=== PATIENT | female | born 1975 | race Caucasian/White ===

== ENCOUNTER 2020-11-28 17:34 | Observation (INO) | payer SELFPAY ==
[2020-11-28] MEDS ORDERED: Lorazepam 2 MG/ML VIAL ONE ×2 (19:29→23:35)
[2020-11-28 19:51] LABS: Acetaminophen Less than 6.0 mcg/mL (10.0-30.0); Alcohol 29 mg/dL (Less than 10); Salicylate Less than 8.0 mg/dL (15.0-30.0)
[2020-11-28 19:53] LABS: ALT (SGPT) 81 U/L (8-55); AST (SGOT) 305 U/L (5-34); Albumin 3.4 g/dL (3.5-5.0); Alkaline Phosphatase 135 U/L (40-110); Anion Gap 20 mmol/L (10-20); BUN (Urea Nitrogen) 7 mg/dL (7.0-18.7); Bilirubin, Total 2.9 mg/dL (0.2-1.2); Calc. Creatinine Clearance 0 mL/min (70-130); Calcium 9.1 mg/dL (7.8-10.44); Carbon Dioxide 18 mmol/L (22-29); Chloride 98 mmol/L (98-107); Globulin 5.9 g/dL (2.4-3.5); Glucose 124 mg/dL (70-105); Lipase 28 U/L (8-78); Potassium 3.2 mmol/L (3.5-5.1); Protein, Total 9.3 g/dL (6.0-8.3); Sodium 133 mmol/L (136-145)
[2020-11-28] MEDS ORDERED: Thiamine HCl 200 MG/2 ML VIAL SLOW IVP SCH (20:00)
[2020-11-28] MEDS ORDERED: Folic Acid 1 MG, Multivitamins, Adult 10 ML in Dextrose 5 %-0.45 % NaCl 1,000 ML IV SCH (20:00)
[2020-11-28 20:21] LABS: Hemoglobin 14.9 g/dL (12.0-15.5); Mean Corpuscular HGB CONC 35.6 g/dL (32.0-36.0); RBC Distribution Width 12.3 % (11.5-14.5); Red Blood Cell (RBC) Count 4.03 10x6/uL (3.90-5.03); White Blood Cell (WBC) Count 4.4 10x3/uL (3.5-10.5)
[2020-11-28] MEDS ORDERED: Multivitamins, Adult 10 ML, Thiamine HCl 100 MG, Folic Acid 1 MG in Dextrose 5 %-0.45 %... IV SCH (20:30)
[2020-11-28 21:03] LABS: Mean Platelet Volume 12.4 fl (7.4-10.4); Platelet Count 49 10x3/uL (150-450)
[2020-11-28 21:07] LABS: #Basophils 0.1 10x3/uL (0.0-0.2); #Monocytes 0.5 10x3/uL (0.0-1.1); #Neutrophils 3.2 10x3/uL (1.5-8.4); %Basophils 1.1 % (0.0-2.0); %Eosinophils 0.2 % (0.0-6.0); %Lymphocytes 13.1 % (18.0-47.0); %Neutrophils 74.4 % (40.0-75.0)
[2020-11-28 21:10] LABS: Macrocytosis SLIGHT = 6-15 cells (100X) (0-5/hpf); Platelet Morphology Comment Appears Decreased
[2020-11-28] MEDS ORDERED: Calcium Carbonate 500 MG ChewTAB PO PRN (22:09)
[2020-11-28] MEDS ORDERED: Acetaminophen 325 MG TAB PO PRN (22:09)
[2020-11-28] MEDS ORDERED: Famotidine/PF 20 mg/2ml Vial SLOW IVP SCH (22:15)
[2020-11-28] MEDS ORDERED: Magnesium Sulfate/D5W 1 GM/100 ML BAG IVPB SCH (22:15)
[2020-11-28] MEDS ORDERED: Promethazine HCl 12.5 MG in Sodium Chloride 0.9% 50 ML IVPB PRN (22:24)
[2020-11-28] MEDS ORDERED: Potassium Chloride 20 MEQ TAB PO SCH (22:30)
[2020-11-28 22:51] LABS: Lactic Acid 1.9 mmol/L (0.5-2.2)
[2020-11-28] MEDS ORDERED: Nicotine 21 MG PATCH TD SCH (23:00)
[2020-11-28] MEDS ORDERED: Potassium Chloride 20 MEQ TAB ONE (23:34)
[2020-11-28] MEDS ORDERED: KCL IV ONE (23:36)
[2020-11-28] MEDS ORDERED: NS IV ONE (23:36)
[2020-11-29] MEDS ORDERED: Lorazepam 2 MG/ML VIAL SLOW IVP SCH (01:00)
[2020-11-29] MEDS ORDERED: Potassium Chloride 20 MEQ TAB ONE (01:42)
[2020-11-29] MEDS ORDERED: Famotidine/PF 20 mg/2ml Vial ONE (01:43)
[2020-11-29] MEDS: NS 0.9% w/ 40 MEQ KCL 1,000 ML IV SCH ×2 (01:51→08:00)
[2020-11-29] MEDS ORDERED: Lorazepam 2 MG/ML VIAL ONE ×2 (03:06→12:55)
[2020-11-29] MEDS ORDERED: Promethazine HCl 25 MG/ML VIAL ONE (03:11)
[2020-11-29] MEDS: Lorazepam 2 MG/ML VIAL SLOW IVP PRN ×2 (03:26→12:58)
[2020-11-29 04:35] LABS: Lactic Acid 1.2 mmol/L (0.5-2.2)
[2020-11-29 04:41] LABS: ALT (SGPT) 69 U/L (8-55); AST (SGOT) 260 U/L (5-34); Alkaline Phosphatase 111 U/L (40-110); Anion Gap 15 mmol/L (10-20); BUN (Urea Nitrogen) 7 mg/dL (7.0-18.7); CK (CPK) 1784 U/L (29-168); Calc. Creatinine Clearance 0 mL/min (70-130); Calcium 8.4 mg/dL (7.8-10.44); Carbon Dioxide 21 mmol/L (22-29); Chloride 102 mmol/L (98-107); Glucose 101 mg/dL (70-105); Magnesium 1.8 mg/dL (1.6-2.6); Phosphorus 2.4 mg/dL (2.3-4.7); Potassium 3.5 mmol/L (3.5-5.1); Sodium 134 mmol/L (136-145)
[2020-11-29 04:49] LABS: #Monocytes 0.5 10x3/uL (0.0-1.1); #Neutrophils 2.7 10x3/uL (1.5-8.4); %Basophils 0.8 % (0.0-2.0); %Eosinophils 0.8 % (0.0-6.0); %Lymphocytes 17.3 % (18.0-47.0); %Neutrophils 67.8 % (40.0-75.0); Hemoglobin 12.2 g/dL (12.0-15.5); Mean Corpuscular HGB CONC 34.7 g/dL (32.0-36.0); Mean Corpuscular Hemoglobin 36.2 pg (27.0-33.0); Mean Corpuscular Volume 104.5 fl (81.6-98.3); Platelet Count 36 10x3/uL (150-450); RBC Distribution Width 12.4 % (11.5-14.5); Red Blood Cell (RBC) Count 3.37 10x6/uL (3.90-5.03)
[2020-11-29] MEDS ORDERED: Magnesium Sulfate/D5W 1 GM/100 ML BAG IVPB SCH (05:00)
[2020-11-29 05:04] LABS: Globulin 5.1 g/dL (2.4-3.5); Protein, Total 8.1 g/dL (6.0-8.3)
[2020-11-29 05:11] LABS: INR-International Normal Ratio 1.2; PTT 29.1 sec (22.0-33.0); Prothrombin Time 13.5 sec (9.5-12.1)
[2020-11-29] MEDS ORDERED: Metoprolol Tartrate 25 MG TAB PO SCH (09:00)
[2020-11-29] MEDS ORDERED: Pantoprazole 40 MG VIAL IVP SCH (09:00)
[2020-11-29] MEDS ORDERED: Multivitamins, Adult 10 ML, Thiamine HCl 100 MG, Folic Acid 1 MG in Dextrose 5 %-0.45 %... IV SCH (09:00)
[2020-11-29] MEDS ORDERED: Lorazepam 0.5 MG TAB ONE (10:06)
[2020-11-29] MEDS ORDERED: Pantoprazole 40 MG VIAL ONE (10:07)
[2020-11-29] MEDS ORDERED: Acetaminophen 500 MG TAB ONE (10:07)
[2020-11-29 10:12] LABS: SARS-CoV-2 NAA Rapid Test Not Detected (NotDetected)
[2020-11-29] MEDS ORDERED: Metoprolol Tartrate 25 MG TAB ONE (10:27)
[2020-11-29] MEDS ORDERED: Acetaminophen 325 MG TAB ONE (10:39)
[2020-11-29] MEDS ORDERED: Multivitamins, Adult 10 ML, Folic Acid 1 MG, Thiamine HCl 100 MG in Dextrose 5 %-0.45 %... IV SCH (21:00)
== END 2020-11-29 14:00 | disposition left against medical advice (07) ==
LOC: CSHERS 17:34 → CSHERHOLD 22:24 → INTOOBSV 22:24
PROVIDERS: ADMIT Student in an Organized Health Care Education/Training Program; ATTEND Internal Medicine
DX: F10.232 Alcohol dependence with withdrawal with perceptual disturbance (principal); E86.0 Dehydration; K70.10 Alcoholic hepatitis without ascites; E87.6 Hypokalemia; E87.2 Acidosis; D75.89 Other specified diseases of blood and blood-forming organs; I10 Essential (primary) hypertension; F17.210 Nicotine dependence, cigarettes, uncomplicated; F12.90 Cannabis use, unspecified, uncomplicated; Z20.822 Contact with and (suspected) exposure to COVID-19
CPT/HCPCS: 36415; 80053; 80307; 82550; 82607; 82746; 83605; 83690; 83735; 84100; 85025; 85610; 85730; 93005; 93010; 96365; 96366; 96375; 96376; C9113; G0378; J2060; J2550; J3411; J3480; J7042; S0028; U0002

== ENCOUNTER 2021-09-20 09:15 | Outpatient (CLI) | payer OTHER ==
[2021-09-20] MEDS ORDERED: Iopamidol 300 61% 100 ML VIAL FS ONE (14:20)
== END 2021-09-20 09:16 | disposition home or self-care (01) ==
LOC: CSHCT 09:15
PROVIDERS: ATTEND Internal Medicine Gastroenterology
DX: B18.2 Chronic viral hepatitis C (principal); R79.89 Other specified abnormal findings of blood chemistry; F10.10 Alcohol abuse, uncomplicated; K21.9 Gastro-esophageal reflux disease without esophagitis; D69.6 Thrombocytopenia, unspecified; K80.20 Calculus of gallbladder without cholecystitis without obstruction
CPT/HCPCS: 74177

== ENCOUNTER 2023-09-17 08:12 | Outpatient (CLI) | payer OTHER ==
[2023-09-17] MEDS ORDERED: Iopamidol 300 61% 100 ML VIAL FS ONE (12:50)
== END 2023-09-17 08:13 | disposition home or self-care (01) ==
LOC: CSHCT 08:12
PROVIDERS: ATTEND Internal Medicine Gastroenterology
DX: K74.60 Unspecified cirrhosis of liver (principal); R10.11 Right upper quadrant pain; R14.0 Abdominal distension (gaseous); R18.8 Other ascites; K80.20 Calculus of gallbladder without cholecystitis without obstruction
CPT/HCPCS: 74177